=== PATIENT | female | born 1970 ===

== ENCOUNTER 2022-05-24 08:38 | Day surgery (SDC) | payer OTHER ==
[~2022-05-24] VITALS: Ht 157.5 cm; Wt 85.3 kg
[~2022-05-24 08:38] MED LIST: Budeprion Xl300 MG PO; PROGESTERONE CREAM
--- NOTE | 2022-05-24 09:37 | NUR ---
05/24/22 0937 ROGERIO YEN 3 ATTEMPTS AT IV. FIRST ATTEMPT BY MA IN R HAND INFILTRATED. SECOND ATTEMPT BY VAISHALI I R AC UNABLE TO ADVANCE. THIRD ATTEMPT BY MA IN L HAND SUCCESSFUL.
== END 2022-05-24 10:48 | disposition home or self-care (01) ==
LOC: ORSCSDS 08:38
DX: Z12.11 Encounter for screening for malignant neoplasm of colon (principal); K57.30 Diverticulosis of large intestine without perforation or abscess without bleeding; K64.8 Other hemorrhoids; K21.9 Gastro-esophageal reflux disease without esophagitis; J45.909 Unspecified asthma, uncomplicated; Z79.899 Other long term (current) drug therapy
CPT/HCPCS: 88305; J2704; J7120